=== PATIENT | female | born 1985 | race Caucasian/White ===

== ENCOUNTER 2017-06-02 18:20 | Emergency (ER) | payer OTHER ==
[~2017-06-02] VITALS: Ht 180.3 cm; Wt 81.0 kg
[~2017-06-02 18:20] MED LIST: ACET50TA PO; AMIT100TA PO; AMIT25TA PO; ASPI81TA85 PO; BIOT50004 PO; CALC600T60 PO; DILA10IN PO; DILA4TAB13 PO; ETOD500T PO; IRONCAP2 PO; KLON0.5T PO; LORA0.5T11 PO; LYRI150C PO; MOBI15TA PO; PERC10TA26 PO; PERC7.5T12 PO; PREG100CA PO; PRENTAB7 PO; SOMA350T PO; SYNT75TA PO; TIZA4CAP PO; [UNRECOGNIZED DRUG - CODE] PO; [UNRECOGNIZED DRUG - OTHER] EXT
[2017-06-02] MEDS ORDERED: SYNT100T (18:38)
[2017-06-02] MEDS ORDERED: DIAZ5TAB (18:38)
[2017-06-02] MEDS ORDERED: ADDE5CAP (18:38)
--- NOTE | 2017-06-02 19:44 | REP ---
Clinical: Trauma . Technique: AP, lateral, bilateral oblique views left ankle . Findings: No acute fracture or dislocation. Skeletal structures and joint spaces are intact and normal. Ankle mortise appears stable. No subcutaneous emphysema or radiodense foreign body. Impression: Normal left ankle radiograph series. Signed by Anmol Bermudez MD 06/02/2017 07:36 P
[2017-06-02 20:02] VITALS: BP 148/101
--- NOTE | 2017-06-03 08:17 | REP ---
Clinical: Trauma. Technique: AP, lateral, bilateral oblique views left foot . Findings: The osseous structures and joint spaces are intact and normal. There is no evidence for acute fracture or dislocation. Surrounding soft tissues are unremarkable. No subcutaneous emphysema or radiodense foreign body. Impression: No acute fracture or dislocation. Signed by Anmol Bermudez MD 06/02/2017 07:31 P
== END 2017-06-02 20:04 | disposition home or self-care (01) ==
LOC: M ED 18:20
DX: S90.02XA Contusion of left ankle, initial encounter (principal); F41.9 Anxiety disorder, unspecified; F32.9 Major depressive disorder, single episode, unspecified; J45.909 Unspecified asthma, uncomplicated; N80.9 Endometriosis, unspecified; Y92.9 Unspecified place or not applicable; Y99.9 Unspecified external cause status; Y93.9 Activity, unspecified; Z79.82 Long term (current) use of aspirin; Z79.899 Other long term (current) drug therapy; Z88.0 Allergy status to penicillin; Z88.2 Allergy status to sulfonamides; Z88.6 Allergy status to analgesic agent; Z88.8 Allergy status to other drugs, medicaments and biological substances; Z88.5 Allergy status to narcotic agent; Z91.040 Latex allergy status; Z91.041 Radiographic dye allergy status; Z91.013 Allergy to seafood